=== PATIENT | male | born 1940 | race Caucasian/White ===

== ENCOUNTER 2017-11-18 12:18 | Outpatient (CLI) | payer MEDICARE, SELFPAY ==
[2017-11-18 13:08] LABS: Hemoglobin A1C 6.4 % (4.5-6.2)
[2017-11-18 13:25] LABS: Albumin 3.9 g/dL (3.4-5.0); CREATININE 1.43 mg/dL (0.70-1.30); Estimated GFR 48.21 (mL/min/1.73m2); Potassium 4.7 mmol/L (3.5-5.1)
== END 2017-11-18 12:38 ==
PROVIDERS: PCP General Practice; Visit Provider General Practice
DX: E11.9 Type 2 diabetes mellitus without complications (principal); I10 Essential (primary) hypertension; R60.9 Edema, unspecified
CPT/HCPCS: 36415; 82040; 82565; 83036; 84132

== ENCOUNTER 2018-03-23 13:56 | Outpatient (CLI) | payer MEDICARE, SELFPAY | END 2018-03-23 14:16 | PROVIDERS: PCP General Practice; Visit Provider General Practice | DX: E11.9 Type 2 diabetes mellitus without complications (principal) | CPT/HCPCS: 36415; 83036 ==

== ENCOUNTER 2018-06-29 14:24 | Outpatient (CLI) | payer MEDICARE, SELFPAY ==
[2018-06-29 14:59] LABS: Hemoglobin A1C 6.8 % (4.5-6.2)
== END 2018-06-29 14:44 ==
PROVIDERS: PCP General Practice; Visit Provider General Practice
DX: E10.9 Type 1 diabetes mellitus without complications (principal)
CPT/HCPCS: 36415; 83036

== ENCOUNTER 2019-01-11 14:16 | Outpatient (CLI) | payer MEDICARE, SELFPAY ==
[2019-01-11 14:45] LABS: Hemoglobin A1C 6.9 % (4.5-6.2)
[2019-01-11 15:29] LABS: CREATININE 1.49 mg/dL (0.70-1.30); Estimated GFR 45.85 (mL/min/1.73m2)
[2019-01-12 10:22] LABS: Prolactin 4.8 ng/ml (2.1-17.7)
[2019-01-14 10:48] LABS: Potassium 5.1 mmol/L (3.5-5.1)
== END 2019-01-11 14:36 ==
PROVIDERS: PCP General Practice; Visit Provider General Practice
DX: I10 Essential (primary) hypertension (principal); E11.9 Type 2 diabetes mellitus without complications
CPT/HCPCS: 36415; 82565; 83036; 84132; 84146

== ENCOUNTER 2019-01-29 00:57 | Outpatient (CLI) | payer MEDICARE, SELFPAY ==
--- NOTE | 2019-01-29 09:00 | DI.US_ITS ---
EXAM: US CAROTID CLINICAL HISTORY: F/U 50-60% LT ICA STENOSIS, I65.22 TECHNIQUE: Ultrasound performed using standard protocol. COMPARISON: Cardiac from 10/06/2017 FINDINGS: On the right, there is moderate calcific plaque in the carotid bulb and proximal external carotid art brandi. No hemodynamically significant velocity elevations are present on the right. The right vertebr al artery is antegrade. On the left, there is moderately severe calcific plaque in the left carotid bulb and proximal interna l carotid artery. Elevated velocities on the left are consistent with a 50-69 percent left internal carotid artery stenosis. The left vertebral artery is antegrade. IMPRESSION: 50-69 percent left internal carotid artery stenosis. No hemodynamically significant right cervical carotid artery stenosis.
--- NOTE | 2019-01-29 09:55 | DI.US_ITS ---
APPROVED REPORT EXAM: Comprehensive 2D, Doppler, and color-flow Echocardiogram Patient Location: Out-Patient [employer] Machine: Danielle Moreno [facility] ([place]) Indications: Aortic Stenosis Conclusion Left Ventricle : The left ventricle is normal size. The left ventricular ejection fraction is within the normal range. There is normal LV segmental wall motion. LVEF is 50-55%. The left ventricular mendes tolic function is normal. Right Ventricle : The right ventricle is normal size. The right ventricular systolic function is norm al. Atria : The left atrium size is normal. The right atrium size is normal. Aortic Valve : Aortic valve is calcified. Aortic valve is probably trileaflet. Moderate aortic valve sclerosis. Mild to moderate aortic stenosis (mean gradient is 14 mmHg, DOMENICO by VTI is 1.1 cm???). Triv ial Regurgitation is seen. Mitral Valve : There is mitral annular calcification. No evidence of mitral valve stenosis. Mild to m oderate mitral regurgitation. Tricuspid Valve : The tricuspid valve is normal in structure. IVC is normal in size and collapses >50% with inspiration. Estimated RVSP is 26-30 mmHg. To echocardiogram dated 10/06/2017 there is no significant change. Wall motion Left Ventricle The left ventricle is normal size. The left ventricular ejection fraction is within the normal range. There is normal left ventricular wall thickness. There is normal LV segmental wall motion. The left ventricular diastolic function is normal. LVEF is 50-55%. Right Ventricle The right ventricle is normal size. The right ventricular systolic function is normal. Atria The left atrium size is normal. The right atrium size is normal. The interatrial septum is intact wit h no evidence for an atrial septal defect. Aortic Valve Aortic valve is calcified. Aortic valve is probably trileaflet. Moderate aortic valve sclerosis. Mild to moderate aortic stenosis. Trivial Regurgitation is seen. Mitral Valve There is mitral annular calcification. No evidence of mitral valve stenosis. Mild to moderate mitral regurgitation. Tricuspid Valve The tricuspid valve is normal in structure. There is no tricuspid valve stenosis. Trace tricuspid reg urgitation. Pulmonic Valve The pulmonary valve is normal in structure. There is no pulmonic valvular stenosis. Trace pulmonic re gurgitation. Great Vessels The aortic root is normal in size. The ascending aorta is normal in size. IVC is normal in size and c ollapses >50% with inspiration. Estimated RVSP is 26-30 mmHg. Pericardium No pericardial effusion. 2D Dimensions IVSd 0.85 cm M: 0.6-1.2 LV EDV A2C 89.11 mL PWd 0.90 cm M: 0.6 - 1.2 LV EDV A4C 88.83 mL LVDd 4.95 cm M: 4.2 - 5.8 LA Volume Index A2C 29.44 mL/m2 LVDs 3.80 cm M: 2.5 - 4.0 LA Volume Index A4C 20.66 mL/m2 Aortic Root 3.00 cm M: 3.1 - 3.7 LA Volume Index Biplane 24.86 mL/m2 Left Atrium 3.65 cm M: 3.0 - 4.0 LA Area A4C 14.91 cm2 RA Area A4C 15.09 cm2 LA Area A2C 17.94 cm2 LVOT 1.80 cm (M/F) 1.5-2.5 EF AP4 52.99 % Ascending Aorta 3.18 cm M: 2.6 - 3.4 EF AP2 55.24 % LVEF (Teich) 45.77 % EF BP 54.43 % LVEF (Torres's) 54.43 % M: 52 - 72 LV Volume 68.47 mL M: 62 - 150 LV Volume Index 34.40 mL/m2 M: 34 - 74 FS 22.85 % LV Diastology E Decel Time 222.00 (160-240 msec) E/A Ratio 1.2 MED E' 0.11 (>0.07 m/s) LV E/e MED 10.65 (<14) LAT E' 0.10 (>0.1 m/s) LV E/e LAT 11.35 (<14) Aortic Valve LVOT Area 2.58 cm2 LVOT Peak Nakul. 1.10 m/s LVOT Mean Nakul. 0.76 m/s DOMENICO Vmax 2.42 m/s LVOT Peak Gr. 5.05 mmHg DOMENICO Vmax Index 0.60 cm2/m2 LVOT Mean Gr. 2.65 mmHg DOMENICO Mean Nakul. 1.80 m/s LVOT VTI 0.25 m DOMENICO Mean Nakul. Index 0.55 cm2/m2 AoV Peak Nakul. 2.42 (0.5-1.3 m/s) AoV Mean Nakul. 1.80 m/s AO Peak GR. 23.41 mmHg AO Mean GR. 14.19 (<5 mmHg) AO VTI 0.60 (0.18-0.25 m) DOMENICO (VTI) 1.10 (2.5-4.5 cm2) DOMENICO (VTI) Index 0.55 cm/m2 Mitral Valve MV E Max Nakul. 1.12 (0.4-1.3 m/s) MV A Velocity 0.95 (0.4-1.3 m/s) E/A Ratio 1.13 MV Decel. Time 221.65 (160-240 msec) MV PHT 64.29 msec MVA PHT 3.40 cm2 Pulmonary Valve PV Peak Velocity 0.95 (0.5-1.5 m/s) Tricuspid Valve TR P. Velocity 2.57 m/s TV Regurg Vmax 2.57 m/s RAP Estimate 3.00 mmHg RVSP 29.50 mmHg TR P. Gradient 26.45 mmHg
== END 2019-01-29 01:17 ==
PROVIDERS: PCP General Practice; Visit Provider General Practice
DX: I35.0 Nonrheumatic aortic (valve) stenosis (principal); I34.0 Nonrheumatic mitral (valve) insufficiency; R01.1 Cardiac murmur, unspecified; I10 Essential (primary) hypertension; I65.22 Occlusion and stenosis of left carotid artery
CPT/HCPCS: 93306; 93880

== ENCOUNTER 2019-04-06 09:20 | Outpatient (CLI) | payer MEDICARE, SELFPAY | END 2019-04-06 09:40 | PROVIDERS: PCP General Practice; Visit Provider Internal Medicine Cardiovascular Disease | DX: I35.0 Nonrheumatic aortic (valve) stenosis (principal); R07.89 Other chest pain; I10 Essential (primary) hypertension; E78.5 Hyperlipidemia, unspecified | CPT/HCPCS: 99204; 99215; 93005; 93010 ==

== ENCOUNTER → 2019-07-05 14:47 | Outpatient (BNVA) | payer MEDICARE, SELFPAY | PROVIDERS: PCP Internal Medicine Geriatric Medicine; Referring Provider Internal Medicine Geriatric Medicine; Visit Provider Internal Medicine Cardiovascular Disease | DX: R07.89 Other chest pain (principal); I10 Essential (primary) hypertension; I35.0 Nonrheumatic aortic (valve) stenosis; E78.5 Hyperlipidemia, unspecified; I65.22 Occlusion and stenosis of left carotid artery | CPT/HCPCS: 99214; 99443 ==

== ENCOUNTER → 2019-12-31 09:46 | Outpatient (BNVA) | payer MEDICARE, SELFPAY | PROVIDERS: PCP Internal Medicine Geriatric Medicine; Referring Provider Internal Medicine Geriatric Medicine; Visit Provider Internal Medicine Cardiovascular Disease | DX: I35.0 Nonrheumatic aortic (valve) stenosis (principal); I65.22 Occlusion and stenosis of left carotid artery; I12.9 Hypertensive chronic kidney disease with stage 1 through stage 4 chronic kidney disease, or unspecified chronic kidney disease; N18.9 Chronic kidney disease, unspecified; R07.9 Chest pain, unspecified; E78.5 Hyperlipidemia, unspecified; E11.22 Type 2 diabetes mellitus with diabetic chronic kidney disease | CPT/HCPCS: 99214 ==

== ENCOUNTER → 2020-06-22 13:37 | Outpatient (BNVA) | payer MEDICARE, SELFPAY | PROVIDERS: PCP Internal Medicine Geriatric Medicine; Referring Provider Internal Medicine Geriatric Medicine; Visit Provider Internal Medicine Cardiovascular Disease | DX: I10 Essential (primary) hypertension (principal); I35.0 Nonrheumatic aortic (valve) stenosis; Z79.82 Long term (current) use of aspirin; E78.5 Hyperlipidemia, unspecified | CPT/HCPCS: 99214 ==

== ENCOUNTER 2024-10-29 22:40 | Inpatient (IN) | payer MEDICARE, SELFPAY ==
[2024-10-29] VITALS (7 sets, daily range): BP systolic 163–181; BP diastolic 71–77; PULSE 80–97; RESP 18; TEMP 37.6–37.7; O2SAT 94–98
--- NOTE | 2024-10-29 22:51 | W.ED.GENAD ---
Discharge Plan Disposition Patient Disposition: Admit to [facility] Condition: Stable Discharge Details Clinical Impression: Small bowel obstruction Admit Date/Time: 10/30/24 00:32 Admit Provider: Sarwat Kitchen Attending Provider: Sarwat Kitchen Primary Care Provider: Angeles Chopra ED Provider: Bal Rousseau Discharge Data Discharge Date/Time-TO BE ENTERED AT DEPARTURE: 10/30/24 01:45 HPI General Date/Time Provider Initiated Documentation: 10/29/24 22:41. HPI Narrative: This is an 83-year-old male with a past medical history of hypertension, high cholesterol, diabetes mellitus on insulin, aortic stenosis, severe dementia, who presents today for abdominal distention. was at bedside states that the last 2 to 3 days he has been complaining of intermittent abdominal achiness, he has been eating very little compared to normal, with only half and quarter meals here and there. He had 1 episode of vomiting 2 days ago but none since then. is uncertain as to when he had his last bowel movement. No prior abdominal surgeries. No other complaints at this time. Related Data Home Medications ?Medication ?Instructions ?Recorded ?Confirmed dorzolamide 22.3 mg-timolol 6.8 1 drp OU BID 11/22/13 10/29/24 mg/mL eye drops pioglitazone 45 mg tablet (Actos) 45 mg PO DAILY AM 11/22/13 10/29/24 pravastatin 40 mg tablet 40 mg PO DAILY 11/22/13 10/29/24 losartan 100 mg tablet 100 mg PO DAILY 08/04/17 10/29/24 aspirin 81 mg tablet,delayed 81 mg PO DAILY 04/06/19 10/29/24 release amlodipine 10 mg tablet 10 mg PO DAILY #90 tabs 12/31/19 10/29/24 levothyroxine 25 mcg tablet 25 mcg PO DAILY 12/31/19 10/29/24 carvedilol 6.25 mg tablet 6.25 mg PO BID #180 tabs 08/04/20 10/29/24 insulin glargine 100 unit/mL (3 15 unit subcut DAILY 10/29/24 10/29/24 mL) subcutaneous pen (Lantus Solostar U-100 Insulin) Previous Rx's ?Medication ?Instructions ?Recorded amlodipine 10 mg tablet 10 mg PO DAILY #90 tabs 12/31/19 carvedilol 6.25 mg tablet 6.25 mg PO BID #180 tabs 08/04/20 Allergies Allergy/AdvReac Type Severity Reaction Status Date / Time No Known Allergies Allergy Unverified 04/04/22 14:23 General Stated Complaint: Abd Prob ANNALEE: 3 Exam Narrative Exam Narrative: 1.Const: Well-nourished, Well-developed, appearing stated age 2.Eyes: PERRL, no conjunctival injection, and symmetrical lids. 3.ENT: Atraumatic external nose and ears. Moist MM. Neck: Symmetric, trachea midline, No thyromegaly. 4.CVS: +S1/S2, Peripheral pulses 2+ and equal in all extremities. Brisk capillary refill in all extremities. 5.RESP: Unlabored respiratory effort. Clear to auscultation bilaterally. No wheezes rales or rhonchi 6.GI: Notably distended and somewhat tense. Absent bowel sounds. No focal tenderness though. 7.MSK: Normocephalic/Atraumatic, Extremities w/o deformity or ttp No cyanosis or clubbing, Normal movement of all extremities 8.Skin: Warm, Dry. No rashes or lesions. 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 Sensation grossly intact, no focal neurologic deficits. 10.Psych: (AAO) x3. Appropriate mood and affect Course Vital Signs Vital signs: Vital Signs Temperature 37.7 C H 10/29/24 22:36 Pulse 84 10/29/24 22:36 Respiratory Rate 18 10/29/24 22:36 Blood Pressure 175/75 H 10/29/24 22:36 Pulse Oximetry 98 10/29/24 22:36 Temperature 37.7 C H 10/29/24 22:36 Temperature Source Oral 10/29/24 22:36 Pulse 84 10/29/24 22:36 Respiratory Rate 18 10/29/24 22:36 Blood Pressure 175/75 H 10/29/24 22:36 Blood Pressure Position Sitting 10/29/24 22:36 Pulse Oximetry 98 10/29/24 22:36 Oxygen Delivery Method Room Air 10/29/24 22:36 Oxygen Flow Rate 0 10/29/24 22:36 Pain Level 0 10/29/24 22:36 Medical Decision Making This is an 83-year-old male with a past medical history of hypertension, high cholesterol, diabetes mellitus on insulin, aortic stenosis, severe dementia, who presents today for abdominal distention. was at bedside states that the last 2 to 3 days he has been complaining of intermittent abdominal achiness, he has been eating very little compared to normal, with only half and quarter meals here and there. He had 1 episode of vomiting 2 days ago but none since then. is uncertain as to when he had his last bowel movement. No prior abdominal surgeries. No other complaints at this time. Exam demonstrates notably distended abdomen, absent bowel sounds, but no significant focal tenderness. Differential is high for [place] syndrome, small bowel obstruction, less likely volvulus. Toxic megacolon is on the differential as well but less likely. We will get CT imaging, gently rehydrate, evaluate for an ischemic component, monitor closely and reassess. [address] scan shows evidence of multiple fluid-filled loops, high-grade small bowel obstruction, laboratory workup shows normal lactate, no evidence to suggest ischemia. Notably elevated BUN and creatinine compared to normal. Patient has been started on IV fluids. NG tube has been placed for the patient. Review of patient's medical history reveals that he is a DNR/DNI. Discussed the case with Dr. Rae of Surgery, who agree with NG tube will consult inpatient as needed. Discussed the case with the hospitalist Dr. Garcia, she agrees with the assessment plan. I have extensively reviewed the treatment plan with the patient. I have addressed all patient concerns at this time. I have also discussed the plan with the admitting physician and they agree with the current assessment and plan and have agreed to assume responsibility for the patient. All parties demonstrate verbal understanding and agreement with our assessment and plan at this time. The documentation in this chart was dictated using [employer] dictation software. Please excuse any dictation errors. Adrenal glands: The adrenal glands are unremarkable. Kidneys and ureters: Bilateral renal cysts are present, as well as other subcentimeter hypodensities which are too small to characterize. Stomach and bowel: Distended stomach with fluid-filled dilated loops of small bowel measuring up to 5 cm the transition point is in the right lower quadrant, characteristic of high-grade partial small bowel obstruction. Appendix: No evidence of appendicitis. Intraperitoneal space: Unremarkable. No free air. No significant fluid collection. Vasculature: There is moderate diffuse atherosclerotic disease of the abdominal aorta. Lymph nodes: Unremarkable. No enlarged lymph nodes. Urinary bladder: No focal wall thickening of the urinary bladder. Reproductive: Unremarkable as visualized. Bones/joints: No acute osseous abnormality. Soft tissues: Bilateral fat containing inguinal hernias. Soft tissues are unremarkable as visualized. IMPRESSION: Distended stomach with fluid-filled dilated loops of small bowel measuring up to 5 cm the transition point is in the right lower quadrant, characteristic of high-grade partial small bowel obstruction. Thank you for allowing us to participate in the care of your patient. Dictated and Authenticated by: Yris Valladares MD 10/30/2024 12:13 AM Eastern Time ([place] & [place] [facility]SH All Active Problems (Updated 10/30/24 @ 02:35 by Bal Rousseau DO) Small bowel obstruction (Acute) Neuropathy (Acute) Nail dystrophy (Acute) Chest tightness (Acute) HTN (hypertension) (Chronic) Aortic stenosis (Chronic) Medical History (Updated 10/30/24 @ 02:35 by Bal Rousseau DO) Stenosis of left internal carotid artery Retinal detachment Glaucoma HLD (hyperlipidemia) Diabetes mellitus Social History Smoking/Tobacco Use Status: Never Smoking risk assessment performed?: Yes Alcohol Intake: current Alcohol Intake frequency: 0-2 drinks per day Alcohol type: wine Details: pt drinks approx 1-3 glasses of wine a day. Drug use: Never What type of physical activity do you participate in: walking Duration: 45-60 minutes/day Frequency: daily Do you feel safe in your relationship?: Yes
[2024-10-29] MEDS: Lactated Ringers 1,000 ML 1000 ML IV (23:08)
[2024-10-29] MEDS: Ondansetron 4 MG/2 ML VIAL IVP (23:17)
[2024-10-29 23:25] LABS: MCV 86 fL (80-95); RDW 14.6 % (11.8-14.1)
[2024-10-29 23:28] LABS: Abs Immature Grans 0.02 10^3/uL (0.0-0.06); HCT 34.0 % (40.0-50.0); HGB 11.3 g/dL (13.5-17.5); Immature Grans % 0.6 %; MCH 28.6 pg (27.0-33.0); MCHC 33.2 % (32.0-36.0); MPV 10.9 fL (8.0-11.0); Platelet Count 175 10^3/uL (130-400); RBC 3.95 10^6/uL (4.36-5.78); RDW-SD 45.9 fL; WBC 3.62 10^3/uL (4.4-10.8)
[2024-10-29 23:38] LABS: Lipase 67 U/L (<78)
--- NOTE | 2024-10-29 23:42 | DI.CT_ITS ---
Exam(s) CT ABDOMEN PELVIS W EXAM: CT ABDOMEN PELVIS W CLINICAL HISTORY: Severe dementia, abd distention, suspect [place]'s. TECHNIQUE: Imaging Protocol: Axial computed tomography images with coronal and sagittal reformatted images were created and reviewed CONTRAST MATERIAL: Intravenous: Omnipaque 350 Contrast volume:75 ml Oral: no COMPARISON: CT ABD PELVIS WITH CONTRAST from 07/20/2015 FINDINGS: ABDOMEN and PELVIS: Lung Bases: Trace pericardial effusion. Trace right pleural effusion Liver: Normal density. No suspicious mass. Gallbladder and biliary tract: Cholelithiasis. No wall thickening or pericholecystic fluid. No biliary dilation. Pancreas: Normal density. No abnormal calcifications or inflammatory process. No evidence of mass. Spleen: Normal. Kidneys: Normal size, contour and axis. No radiodense stones. No obstructive uropathy. Bilateral simple cysts. No suspicious masses seen. Adrenal glands: No masses seen. Vasculature: Abdominal aorta non-dilated. Heavily calcified. Soft tissues: Unremarkable. Bladder: No gross wall thickening. No calculi.No focal mass. Bowel: The stomach and small bowel are markedly dilated, measuring up to 5 cm in diameter. The there is a transition point in the right lower quadrant and distal loops of ileum as well as colon are decompressed. Findings are consistent with small bowel obstruction. No wall thickening or pneumatosis. There is fluid in the distal esophagus consistent with reflux. The appendix is normal. Peritoneal cavity: Trace ascites. No focal collection. No mesenteric inflammatory response. No free air. Bones: Unremarkable for age. Reproductive organs: Unremarkable. Lymph nodes: No pathologically enlarged lymph nodes. IMPRESSION:: Severely dilated stomach and small bowel down to the level of the right lower quadrant where there is a transition point, consistent with small bowel obstruction. Trace ascites. No free air. The preliminary [facility] report was reviewed. RADIATION DOSE DELIVERED: Total DLP DATA REPOSITORY: All CT scans at this facility are submitted to the National Radiology Data Registry (NRDR) Dose Index Registry (DIR) with the [employer] (ACR). RADIATION OPTIMIZATION: All CT scans at this facility use at least one of these dose optimization techniques: automated exposure control; mA and/or kV adjustment per patient size (includes targeted exams where dose is matched to clinical indication); or iterative reconstruction.
[2024-10-29 23:44] LABS: ALT 20 U/L (16-63); AST 14 U/L (15-37); Albumin 3.9 g/dL (3.4-5.0); Alkaline Phosphatase 62 U/L (46-116); Anion Gap 12.2 mmol/L (3-11); BUN 54 mg/dL (7-18); Bilirubin, Total 1.0 mg/dL (0.2-1.0); CO2 27.8 mmol/L (21.0-32.0); Calcium 9.8 mg/dL (8.5-10.1); Chloride 97 mmol/L (98-107); Estimated GFR 19.45 (mL/min/1.73m2); Glucose 325 mg/dL (74-106); Potassium 4.1 mmol/L (3.5-5.1); Sodium 137 mmol/L (136-145); Total Protein 7.7 g/dL (6.4-8.2)
[2024-10-29] MEDS: Omnipaque 350 MG/ML 100 ML BTL IJ (23:45)
[2024-10-29] MEDS: Normal Saline - Diluent 50 ML VIAL IJ (23:46)
[2024-10-30] VITALS (81 sets, daily range): BP systolic 53–145; BP diastolic 22–99; PULSE 83–156; RESP 16–47; TEMP 37–38.9; O2SAT 92–100
[2024-10-30 00:02] LABS: Procalcitonin 0.38 ng/mL
--- NOTE | 2024-10-30 00:14 | DI.[facility]_ITS ---
Addendum created by Yris Valladares MD on 10/30/2024 1:03:38 AM EDT: THIS REPORT CONTAINS FINDINGS THAT MAY BE CRITICAL TO PATIENT CARE. The findings were verbally communicated via telephone conference with CHUCKY LUONG at 1:03 AM EDT on 10/30/2024. The findings were acknowledged and understood. Initial report created on 10/30/2024 12:13:30 AM EDT: PROCEDURE INFORMATION: Exam: CT Abdomen And Pelvis With Contrast Exam date and time: 10/29/2024 11:06 PM Age: 83 years old Clinical indication: Other: Severe dementia, abd distention, suspect jj's TECHNIQUE: Imaging protocol: Computed tomography of the abdomen and pelvis with contrast. Radiation optimization: All CT scans at this facility use at least one of these dose optimization techniques: automated exposure control; mA and/or kV adjustment per patient size (includes targeted exams where dose is matched to clinical indication); or iterative reconstruction. Contrast material: [id number]; Contrast volume: 75 ml; Contrast route: INTRAVENOUS (IV); COMPARISON: No relevant prior studies available. FINDINGS: Lungs: Linear bibasilar opacities most consistent with subsegmental atelectasis. Liver: There is a diffuse decrease in hepatic parenchymal density, consistent with fatty infiltration. Gallbladder and biliary ducts: Multiple gallstones are present. No pericholecystic inflammatory changes to suggest cholecystitis. Pancreas: The pancreas is unremarkable. Spleen: No splenomegaly. No lesions. Adrenal glands: The adrenal glands are unremarkable. Kidneys and ureters: Bilateral renal cysts are present, as well as other subcentimeter hypodensities which are too small to characterize. Stomach and bowel: Distended stomach with fluid-filled dilated loops of small bowel measuring up to 5 cm the transition point is in the right lower quadrant, characteristic of high-grade partial small bowel obstruction. Appendix: No evidence of appendicitis. Intraperitoneal space: Unremarkable. No free air. No significant fluid collection. Vasculature: There is moderate diffuse atherosclerotic disease of the abdominal aorta. Lymph nodes: Unremarkable. No enlarged lymph nodes. Urinary bladder: No focal wall thickening of the urinary bladder. Reproductive: Unremarkable as visualized. Bones/joints: No acute osseous abnormality. Soft tissues: Bilateral fat containing inguinal hernias. Soft tissues are unremarkable as visualized. IMPRESSION: Distended stomach with fluid-filled dilated loops of small bowel measuring up to 5 cm the transition point is in the right lower quadrant, characteristic of high-grade partial small bowel obstruction. Dictated and Authenticated by: Yris Valladares MD. Orderin Soham Selby MD
--- NOTE | 2024-10-30 00:39 | W.PM.HP.N ---
Date of service: 10/29/24 Time of Service: 23:30 Assessment and Plan Assessment and plan (1) Small bowel obstruction: Status: Acute Assessment and plan: NGT placed and confirmed on CXR after mild sedation with olanzapine and benzo Profuse dark liquid removed Contributing factors likely include poor DM control, dehydration Appreciate general surgery guidance Continue NPO (2) PATRICIA (acute kidney injury): Status: Acute Assessment and plan: Likely PATRICIA vs chronic with creatinine 3.1, BUN elevated 54 Likely dehydration, note recent temps above 90 He was given LR 1L bolus in ED and is now on LR @ 125 CK within normal limits in ED, will repeat in the morning He struggled with agitation prior to medications, anticipate CK elevation but not rhabdo Monitor renal function in morning labs (3) Chronic dementia with behavioral disturbance: Status: Acute Assessment and plan: Per report, patient's provides adequate care Concern for uncontrolled diabetes, possible held insulin due to poor PO intake Agitation secondary to illness, pain, medical interventions, likely out of character Olanzapine 10 given for agitation, followed by lorazepam 4mg. Soft restraints placed Care level ICU Will appreciate care management assessment of home safety (4) Diabetes mellitus with hyperglycemia, with long-term current use of insulin: Status: Acute Assessment and plan: Last known A1C 8.0 in 2021, repeating with morning labs Home regimen includes basal 15u daily, pioglitazone Hold pioglitazone Giving 10u long acting insulin now, likely TDD 15u. Medium correctional, no scheduled basal pending med rec (5) Benign essential hypertension: Status: Acute Assessment and plan: Holding home medications for NPO Home regimen includes amlodipine, carvedilol, losartan, need confirmation (6) Hypothyroidism: Status: Chronic Assessment and plan: Holding home levothyroxine History of Present Illness History of Present Illness Chief Complaint: abdominal distension Narrative: Carlos Figueroa is an 83 year old man with dementia, presenting October 29, brought in by his for a newly distended abdomen and complaints of stomach ache over the last few days. Food intake has been poor. One episode of vomiting. No recent illness, no sick contacts. Patient is unable to answer questions; he denies pain. PMH includes dementia, DM on insulin, HTH, hypothyroid In the ED, BP was elevated 175/75, vitals otherwise unremarkable. CXR unremarkable. CT abdomen/pelvis with contrast showed likely SBO with dilation up to 5 cm, transition point in RLQ. Labs with mild normocytic anemia, hemoglobin 11.3. Possible PATRICIA vs CKD, creatinine 3.1 against last known baseline 1.5 in 2019. Blood glucose 325 with last known A1C 8.0 in 2021. General surgery consulted, recommending medical management. NGT placement attempted but patient was too agitated. Given olanzapine prior to move to ICU. PFSH All Active Problems (Updated 10/30/24 @ 04:18 by Sarwat Kitchen MD) PATRICIA (acute kidney injury) (Acute) Hypothyroidism (Chronic) Benign essential hypertension (Acute) Diabetes mellitus with hyperglycemia, with long-term current use of insulin (Acute) Chronic dementia with behavioral disturbance (Acute) Small bowel obstruction (Acute) Neuropathy (Acute) Nail dystrophy (Acute) Chest tightness (Acute) HTN (hypertension) (Chronic) Aortic stenosis (Chronic) Medical History (Updated 10/30/24 @ 04:18 by Sarwat Kitchen MD) Stenosis of left internal carotid artery Retinal detachment Glaucoma HLD (hyperlipidemia) Diabetes mellitus Social History Smoking/Tobacco Use Status: Never Smoking risk assessment performed?: Yes Alcohol Intake: current Alcohol Intake frequency: 0-2 drinks per day Alcohol type: wine Details: pt drinks approx 1-3 glasses of wine a day. Drug use: Never What type of physical activity do you participate in: walking Duration: 45-60 minutes/day Frequency: daily Do you feel safe in your relationship?: Yes Meds Allergies and Home Medications Allergies Allergy/AdvReac Type Severity Reaction Status Date / Time No Known Allergies Allergy Unverified 04/04/22 14:23 Home Medications ?Medication ?Instructions ?Recorded ?Confirmed ?Type dorzolamide 22.3 mg-timolol 6.8 1 drp OU BID 11/22/13 10/29/24 History mg/mL eye drops pioglitazone 45 mg tablet (Actos) 45 mg PO DAILY AM 11/22/13 10/29/24 History pravastatin 40 mg tablet 40 mg PO DAILY 11/22/13 10/29/24 History losartan 100 mg tablet 100 mg PO DAILY 08/04/17 10/29/24 History aspirin 81 mg tablet,delayed 81 mg PO DAILY 04/06/19 10/29/24 History release amlodipine 10 mg tablet 10 mg PO DAILY #90 tabs 12/31/19 10/29/24 Rx levothyroxine 25 mcg tablet 25 mcg PO DAILY 12/31/19 10/29/24 History carvedilol 6.25 mg tablet 6.25 mg PO BID #180 tabs 08/04/20 10/29/24 Rx insulin glargine 100 unit/mL (3 15 unit subcut DAILY 10/29/24 10/29/24 History mL) subcutaneous pen (Lantus Solostar U-100 Insulin) Exam Narrative Exam Narrative: General: This is a confused, elderly man in no apparent distress HEENT: Normocephalic, atraumatic CV: RRR Resp: CTAB Abd: distended, fairly firm, no apparent tenderness, absent bowel sounds MSK: voluntary motion x4 Neuro: awake, alert, confused, combative Results Labs 10/29/24 23:15 10/29/24 23:15 Labs: Laboratory Results - last 24 hr 10/29/24 23:15 WBC 3.62 L RBC 3.95 L Hgb 11.3 L Hct 34.0 L MCV 86 MCH 28.6 MCHC 33.2 RDW 14.6 H Plt Count 175 MPV 10.9 Immature Gran % 0.6 Neutrophils % 62.9 Lymphocytes % 18.0 Monocytes % 18.2 Eosinophils % 0.0 Basophils % 0.3 Nucleated RBC % 0.0 Absolute Neutrophils 2.28 Absolute Lymphocytes 0.65 L Absolute Monocytes 0.66 Absolute Eosinophils 0.00 Absolute Basophils 0.01 VBG Lactate 1.9 Sodium 137 Potassium 4.1 Chloride 97 L Carbon Dioxide 27.8 Anion Gap 12.2 H BUN 54 H Creatinine 3.1 H Est GFR (CKD-EPI 2020) 19.45 Glucose 325 H Calcium 9.8 Total Bilirubin 1.0 AST 14 L ALT 20 Alkaline Phosphatase 62 Total Protein 7.7 Albumin 3.9 Lipase 67 Procalcitonin 0.38 Last Vital Signs Temp 37.6 C H 10/29/24 23:26 Pulse 88 10/29/24 23:26 Resp 18 10/29/24 23:26 BP 181/71 H 10/29/24 23:26 Pulse Ox 98 10/29/24 23:26 Time Spent Time spent with Patient: 55-74 minutes Time was spent: preparing to see the patient(eg.review tests), obtaining and/or reviewing separately otained hiistory, ordering medications,tests, procedures, referring, communicating with other health pet care worker, indepentently interpreting results, counseling the patient and care coordination
--- NOTE | 2024-10-30 01:03 | DI.RAD_ITS ---
Exam(s) XR PORTABLE CHEST AP EXAM: XR PORTABLE CHEST AP CLINICAL HISTORY: Post NG tube TECHNIQUE: 2D digital imaging was performed. COMPARISON: No exams were available for comparison FINDINGS: Nasogastric tube has been placed which is faintly visualized, projecting below the level of the diaphragm. LUNGS: Suboptimally inflated but clear. Abdominal soft tissues overlie the lung bases. No pleural abnormality seen. HEART: Normal size. AORTA: Normal diameter. BONES: Unremarkable for age. Soft tissues: Dilated loops of small bowel noted in the upper abdomen. IMPRESSION: No acute findings. Satisfactory placement of nasogastric tube. The preliminary [facility] report was reviewed. DATA REPOSITORY: RADIATION DOSE DELIVERED:
--- NOTE | 2024-10-30 01:09 | DI.[facility]_ITS ---
PROCEDURE INFORMATION: Exam: XR Chest Exam date and time: 10/30/2024 12:58 AM Age: 83 years old Clinical indication: Device placement; Post ng tube TECHNIQUE: Imaging protocol: Radiologic exam of the chest. Views: 1 view. COMPARISON: CT ABDOMEN PELVIS W 10/29/2024 11:06 PM FINDINGS: Tubes, catheters and devices: A gastric feeding tube is present within the stomach. Lungs: Unremarkable. No consolidation. Pleural spaces: Unremarkable. No pleural effusion. No pneumothorax. Heart/Mediastinum: Unremarkable. No cardiomegaly. Bones/joints: Unremarkable. IMPRESSION: No acute findings. Dictated and Authenticated by: Yris Valladares MD. Orderin Soham Selby MD
[2024-10-30] MEDS: OLANZapine 10 MG VIAL IM (01:21)
--- NOTE | 2024-10-30 01:22 | NUR.NOTE ---
Pt removed NG tube and IV. Did not replace down in ED. NG and IV agreed upon to be replaced in ICU where 1:1 care can be provided for pt safety.
[2024-10-30] MEDS: Lidocaine/Epinephri/Tetracaine Topical Gel 3 ML TP (02:00)
[2024-10-30] MEDS: LORazepam 20 MG/10 ML VIAL 4 MG IVP (02:11)
--- NOTE | 2024-10-30 02:15 | DI.RAD_ITS ---
Exam(s) XR PORTABLE CHEST AP POST LINE EXAM: XR PORTABLE CHEST AP POST LINE CLINICAL HISTORY: NG placement verification TECHNIQUE: 2D digital imaging was performed. COMPARISON: CR,XR XR PORTABLE CHEST AP from 10/30/2024 FINDINGS: The nasogastric tube projects in the proximal stomach. The side hole is near the GE junction. The tube should be advanced. LUNGS: Clear. No pleural abnormality seen. HEART: Normal size. AORTA: Normal diameter. BONES: Unremarkable for age. Soft tissues: Dilated stomach and small bowel visible. IMPRESSION: The nasogastric tube should be advanced further into the stomach. The preliminary [facility] report was reviewed. DATA REPOSITORY: RADIATION DOSE DELIVERED:
--- NOTE | 2024-10-30 03:03 | DI.[facility]_ITS ---
PROCEDURE INFORMATION: Exam: XR Chest Exam date and time: 10/30/2024 2:53 AM Age: 83 years old Clinical indication: Device placement; Ng tube; Ng placement verification TECHNIQUE: Imaging protocol: Radiologic exam of the chest. Views: 1 view. COMPARISON: CR XR PORTABLE CHEST AP 10/30/2024 12:58 AM FINDINGS: Tubes, catheters and devices: A gastric feeding tube is present within the proximal stomach . The side port appears to be at the GE junction, recommend advancement approximately 5 cm. Lungs: Unremarkable. No consolidation. Pleural spaces: Unremarkable. No pleural effusion. No pneumothorax. Heart/Mediastinum: Unremarkable. No cardiomegaly. Bones/joints: Unremarkable. IMPRESSION: A gastric feeding tube is present within the proximal stomach . The side port appears to be at the GE junction, recommend advancement approximately 5 cm. Dictated and Authenticated by: Yris Valladares MD. Orderin Imtiaz Fam MD
[2024-10-30] MEDS: Insulin Glargine 300 UNITS/3 ML PEN 10 UNITS SC (03:09)
[2024-10-30] MEDS: Lactated Ringers 1,000 ML 125 ML IV ×2 (04:11→10:26)
[2024-10-30] MEDS: Normal Saline Flush 10 ML SYR IVP ×2 (04:15→09:53)
[2024-10-30] MEDS: Insulin Aspart 300 UNITS/3 ML PEN 10 UNITS SC (04:51)
--- NOTE | 2024-10-30 06:30 | RT.EKG_ITS ---
APPROVED REPORT Exam: Resting ECG Reason for Exam: initial exam Patient Location: I HR:111 bpm ECG Measurements Heart Rate 111 AXIS MN 144 P 47 QRSd 89 QRS 35 QT 332 T 72 QTc 451 Conclusion Sinus tachycardia...rate> 99 Probable left atrial enlargement...P >50mS, <-0.10mV V1 Otherwise normal ECG
[2024-10-30] MEDS: ACETAMINOPHEN 1,000 MG/100 ML BAG 400 MG IVPB (06:58)
[2024-10-30 07:10] LABS: HCT 37.6 % (40.0-50.0); HGB 12.7 g/dL (13.5-17.5); MCH 28.7 pg (27.0-33.0); MCHC 33.8 % (32.0-36.0); MCV 85 fL (80-95); MPV 11.6 fL (8.0-11.0); Platelet Count 206 10^3/uL (130-400); RBC 4.42 10^6/uL (4.36-5.78); RDW 14.2 % (11.8-14.1); RDW-SD 44.2 fL; WBC 4.22 10^3/uL (4.4-10.8)
[2024-10-30 07:31] LABS: RBC Morphology Normal
[2024-10-30 07:32] LABS: ALT 20 U/L (16-63); AST 16 U/L (15-37); Albumin 3.7 g/dL (3.4-5.0); Alkaline Phosphatase 58 U/L (46-116); Anion Gap 11.4 mmol/L (3-11); BUN 62 mg/dL (7-18); Bilirubin, Total 0.9 mg/dL (0.2-1.0); CO2 32.6 mmol/L (21.0-32.0); Calcium 9.5 mg/dL (8.5-10.1); Chloride 94 mmol/L (98-107); Creatine Kinase 202 U/L (39-308); Estimated GFR 14.33 (mL/min/1.73m2); Glucose 347 mg/dL (74-106); Potassium 3.9 mmol/L (3.5-5.1); Sodium 138 mmol/L (136-145); Total Protein 7.4 g/dL (6.4-8.2)
--- NOTE | 2024-10-30 07:32 | W.PC.ACHO ---
Registration Status: ADM IN Primary Language: Preferred Language: Sami ED Information & Data Chief Complaint Abd Prob 10/29/24 23:26 Chief Complaint Abd Prob 10/29/24 22:56 Triage Note BIBA with complaints of abd 10/29/24 22:36 distention x 4 days. Last BM 4 days ago Medical / Surgical History (Last Reviewed 06/22/20 @ 10:16 by Shaji Nina MD) Stenosis of left internal carotid artery Retinal detachment Glaucoma HLD (hyperlipidemia) Diabetes mellitus Most Recent Vital Signs Temperature 37.0 C 10/30/24 05:00 Temperature Source Temporal Artery Scan 10/30/24 05:00 Pulse 115 H 10/30/24 07:01 Pulse 114 H 10/30/24 07:01 Respiratory Rate 31 H 10/30/24 07:01 Respiratory Effort Non-Labored 10/30/24 05:00 Respiratory Depth Normal 10/30/24 03:24 Respiratory Pattern Tachypnea 10/30/24 03:24 Blood Pressure 82/55 L 10/30/24 07:01 Blood Pressure Mean 65 10/30/24 07:01 Blood Pressure Position Supine 10/30/24 03:24 Pulse Oximetry 97 10/30/24 07:13 Oxygen Delivery Method Room Air 10/30/24 07:13 Oxygen Flow Rate 0 10/30/24 07:13 Pain Level 0 10/29/24 23:26 Allergies No Known Allergies Allergy (Unverified 04/04/22 14:23) Precautions Isolation Standard precaution 10/29/24 23:26 Active Medications Generic Name Dose Route Start Last Admin Trade Name Freq PRN Reason Stop Dose Admin Ringer's Solution 1,000 mls @ 125 mls/hr 10/30/24 03:00 10/30/24 04:11 IV 125 mls/hr INFUSION JEROME Administration Acetaminophen 1,000 mg in 100 mls @ 400 mls/hr 10/30/24 06:50 10/30/24 06:58 Ofirmev IVPB 10/31/24 08:00 400 mls/hr Q8H PRN PRN Administration Iohexol 100 ml 10/29/24 23:15 10/29/24 23:45 Omnipaque 350 Mg/Ml 100 Ml Btl IJ 11/28/24 23:59 75 ml DIRECTED JEROME Administration Sodium Chloride 0 ml 10/29/24 22:49 10/30/24 04:15 Normal Saline Flush 10 Ml Syr IVP 40 ml PRN PRN Administration Sodium Chloride 50 ml 10/29/24 23:15 10/29/24 23:46 Normal Saline - Diluent 50 Ml Vial IJ 50 ml DIRECTED JEROME Administration IV IV Catheter Type [Left] Peripheral IV IV Catheter Type [Right Saline Lock Forearm] IV Catheter Type [Left Forearm Saline Lock ] IV Catheter Type [Left Peripheral IV Antecubital] IV Catheter Gauge [Left] 20 IV Catheter Gauge [Right 20 Forearm] IV Catheter Gauge [Left 20 Forearm] IV Catheter Gauge [Left 20 Antecubital] Diet Orders Category Date Time Status Nothing Per Oral [DIET] Nutrition 10/30/24 00:33 Active Diagnostics 10/30/24 10/30/24 10/29/24 Range/Units 05:35 05:30 23:15 WBC Pending 3.62 L (4.4-10.8) 10^3/uL RBC Pending 3.95 L (4.36-5.78) 10^6/uL Hgb Pending 11.3 L (13.5-17.5) g/dL Hct Pending 34.0 L (40.0-50.0) % MCV Pending 86 (80-95) fL MCH Pending 28.6 (27.0-33.0) pg MCHC Pending 33.2 (32.0-36.0) % RDW Pending 14.6 H (11.8-14.1) % Plt Count Pending 175 (130-400) 10^3/uL MPV Pending 10.9 (8.0-11.0) fL Immature Gran % Pending 0.6 % Neutrophils % Pending 62.9 % Lymphocytes % Pending 18.0 % Monocytes % Pending 18.2 % Eosinophils % Pending 0.0 % Basophils % Pending 0.3 % Nucleated RBC % 0.0 (0.0-0.3) % Absolute Neutrophils Pending 2.28 (1.2-6.7) 10^3/uL Absolute Lymphocytes Pending 0.65 L (1.2-3.4) 10^3/uL Absolute Monocytes Pending 0.66 (0.1-0.8) 10^3/uL Absolute Eosinophils Pending 0.00 (0.0-0.7) 10^3/uL Absolute Basophils Pending 0.01 (0.0-0.2) 10^3/uL VBG Lactate 1.9 (<or=2.0) mmol/L Sodium Pending 137 (136-145) mmol/L Potassium Pending 4.1 (3.5-5.1) mmol/L Chloride Pending 97 L (98-107) mmol/L Carbon Dioxide Pending 27.8 (21.0-32.0) mmol/L Anion Gap Pending 12.2 H (3-11) mmol/L BUN Pending 54 H (7-18) mg/dL Creatinine Pending 3.1 H (0.70-1.30) mg/dL Est GFR (CKD-EPI 2020) Pending 19.45 (mL/min/1.73m2) Glucose Pending 325 H (74-106) mg/dL Calcium Pending 9.8 (8.5-10.1) mg/dL Total Bilirubin Pending 1.0 (0.2-1.0) mg/dL AST Pending 14 L (15-37) U/L ALT Pending 20 (16-63) U/L Alkaline Phosphatase Pending 62 (46-116) U/L Creatine Kinase Cancelled Pending Total Protein Pending 7.7 (6.4-8.2) g/dL Albumin Pending 3.9 (3.4-5.0) g/dL Lipase 67 (<78) U/L Procalcitonin 0.38 ng/mL Fklrk-cu-Sost Documentation Fingerstick Glucose Start: 10/30/24 00:35 Freq: .Q6H Status: Active Protocol: Activity Type Activity Date Activity User E-sign Co-sign Detail Recorded Client Recorded Date Recorded By Document 10/30/24 07:00 BKG DAEMON(3) [id number] 10/30/24 07:00 BKG DAEMON(4) Intake and Output - 24 Hour Total 10/29/24 22:34 thru 10/30/24 06:45 Intake Total 1020 Output Total 2200 Balance -1180 Weight 68.4 kg Intake: IV 1020 Output: Gastric Drainage 2200 Left Nare 2200 Other: Urine Color Straw Comment lerner is patent Urinary Catheter Urinary Catheter Date of 10/30/24 Insertion [Urethral (Lerner)] Time of insertion [Urethral ( 02:30 Lerner)] Falls Risk Assessment History of Falls No History 10/30/24 03:24 Contributing Factors Confusion 10/30/24 03:24 Ambulatory Aids Uses ambulatory device 10/30/24 03:24 Tubes/Lines With any additional score 10/30/24 03:24 Gait Evaluation W/any additional score 10/30/24 03:24 Fall Total Score 58 10/30/24 03:24 Level of Risk High Risk 10/30/24 03:24 Restraint Information Behavior Requiring Restraints/ Harm to Patient Seclusion Note Pt not oriented. Will pull at NG tube and lines. Restraints continued. Problems (Last Reviewed 06/22/20 @ 10:16 by Shaji Nina MD) PATRICIA (acute kidney injury) (Acute) Hypothyroidism (Chronic) Benign essential hypertension (Acute) Diabetes mellitus with hyperglycemia, with long-term current use of insulin (Acute) Chronic dementia with behavioral disturbance (Acute) Small bowel obstruction (Acute) Notes 10/30/24 01:22 Nursing Notes by Rosemary Mckeon Pt removed NG tube and IV. Did not replace down in ED. NG and IV agreed upon to be replaced in ICU where 1:1 care can be provided for pt safety. Initialized on 10/30/24 01:22 - END OF NOTE v v v v v v v v v Sending and/or Receiving Nurses: Please use comment section below to note any information pertinent to the patient hand-off not included above. Information / Comments: Report received from: Jimmy Mendoza RN all questions answered: yes
[2024-10-30] MEDS: Norepinephrine in D5W 8 MG/250 ML BAG 9.375 MG IV (08:18)
[2024-10-30] MEDS: Insulin Aspart 300 UNITS/3 ML PEN SC (08:31)
[2024-10-30] MEDS: Lactated Ringers 250 ML 1000 ML IV (09:00)
--- NOTE | 2024-10-30 09:02 | INITIAL_ITS ---
Date of service: 10/30/24 Time of Service: 09:02 Care Management Initial Assmt Initial Assessment Reason for Hospitalization: Small bowel obstruction Functional Status/Living Situation Patient Presentation: Sherman presented to the ED last night with c/o abdominal achiness and distention. , Fide, reported 2-3 days of intermittent abdominal pain and decreased appetite. Uncertain of last BM. He was found to have a small bowel obstruction. Sherman was made NPO, NGT was placed to suction and profuse dark liquid was removed. Vladimir was lying in the ICU bed when CM arrived. He had an NGT that was actively draining fecal matter, he was on IVF and a norepipnepherine drip, and was noted to be tacchycardic and hypotensive. Sherman responded to voice and touch with non-sensical responses. Fide was present. She stated that she is worried that Sherman may not pull out of this one. Fide stated that they are very well supported at home by their neighbors. She feels that prior to this admission, things were going well at home. Sherman has Alzheimer's. Fide has people who will stay with Vladimir so she can go out to run errands, or have lunch with a friend. She did not feel the need to increase any services. Sherman is ambulatory at baseline, and has been able to perform most of his ADLs. Fide is also working with a paid [employer] Systemsman who is currently searching for gun mechanic care for Sherman is he should need hospice care at home. Fide is aware that depending on the outcome of this hospitalization, Sherman may need more services at home. She did not want to commit at this time, which is reasonable. did ask Fide about a palliative consult. Her nephew is a palliative doctor in [place], and she has been consulting with him. She did not want and [facility] consult at this time. Town of Residence: [place] Resides with: Spouse (Fide) Significant Other/Family: Out of area (no real family locally. Fide has a son from her first marriage who is very helpful, but does not live close.) Caregiver/Guardian: Fide is still driving, seems quite capable. Natural Supports: Fide Employment Status: Retired Instrumental Activities of Daily Living (ADLs): Requires support Activities/Hobbies/SocialSupport: Fide takes Sherman out on an outing nearly every day. They listen to TV and b ooks on tape. Sherman loves visits from friends. Medications Medication Management: Issues/Barriers with Instructions/Directions (some quest ion if following med regime correctly? Will suggest new RN for med teaching.) Physical Functioning/Mobility Assistive Device: none Advance Directives Advance Directives: Do you have an Advance Directive: Y , 14:17 AD On File at [facility]: Y 01/11/19, 14:17 Date Asked 01/11/19 01/11/19, 14:17 AD Date Reviewed 10/29/24 10/29/24, 22:43 COLST On File at [facility] No 10/29/24, 22:43 COLST Date Scanned Code Status Resuscitation Status DNR/DNI Portal Pt does not currently have a portal and education provided: Yes Insurance Coverage/Financial Issues Insurance: A[id number] Mcr Replacement - Care Team Visit Care Team Role Provider Type Angeles Chopra Primary Care Provider NON-[facility] STAFF PHYSICIAN Bal Rousseau DO Emergency Provider [facility] STAFF PHYSICIAN Sarwat Kitchen MD Admit Provider [facility] STAFF PHYSICIAN Attending Provider Discharge Potential Discharge Needs: PCP F/U Appt Anticipated Barriers to Discharge: None Identified Patient/Family Education Needs: Review discharge instructions, discuss Ask Me Three Transportation: Private vehicle Plan: Sherman's discharge plan is uncertain at this time. Plan will depend on how well Sherman recovers. CM will continue to follow closely. Social Determinants of Health Screening Will the Patient Participate in the Screening?: Unable to obtain Do you worry about having a steady place to live?: choose not to answer Comments: unable to obtain information. pt speaks in a word salad PFSH All Active Problems (Updated 10/30/24 @ 12:07 by Carlos Guillen MD) Hypotension (Acute) SIRS (systemic inflammatory response syndrome) (Acute) PATRICIA (acute kidney injury) (Acute) Hypothyroidism (Chronic) Benign essential hypertension (Acute) Diabetes mellitus with hyperglycemia, with long-term current use of insulin (Acute) Chronic dementia with behavioral disturbance (Acute) Small bowel obstruction (Acute) Neuropathy (Acute) Nail dystrophy (Acute) Chest tightness (Acute) HTN (hypertension) (Chronic) Aortic stenosis (Chronic) Medical History (Updated 10/30/24 @ 12:07 by Carlos Guillen MD) Stenosis of left internal carotid artery Retinal detachment Glaucoma HLD (hyperlipidemia) Diabetes mellitus Social History Smoking/Tobacco Use Status: Never Smoking risk assessment performed?: Yes Alcohol Intake: current Alcohol Intake frequency: 0-2 drinks per day Alcohol type: wine Details: pt drinks approx 1-3 glasses of wine a day. Drug use: Never What type of physical activity do you participate in: walking Duration: 45-60 minutes/day Frequency: daily Do you feel safe in your relationship?: Yes Anticipated HH Services Anticipated HH Services at [facility] Needed, [facility], PT and RN Following Provider: Angeles Chopra.
[2024-10-30] MEDS: CEFEPIME 1 GM in Normal Saline 50 ML IVPB (09:52)
[2024-10-30 10:07] LABS: ESR 23 mm/hr (0-20)
[2024-10-30 10:24] LABS: C-Reactive Protein 6.55 mg/dL (<or=0.5); NT-proBNP 2305 pg/mL (<300)
[2024-10-30] MEDS: Normal Saline-STERILE FIELD 0.9% 10 ML SYR (11:30)
[2024-10-30] MEDS: Lactated Ringers 1,000 ML 2000 ML IV (11:30)
--- NOTE | 2024-10-30 11:51 | PGE_ITS ---
Date of Service Date of service: 10/30/24 Time of Service: 11:52 Assessment and Plan Assessment and plan (1) Small bowel obstruction: Status: Acute Assessment and plan: NGT placed and confirmed on CXR after mild sedation with olanzapine and benzo Profuse dark liquid removed Contributing factors likely include poor DM control, dehydration Appreciate general surgery guidance Continue NPO 10/30/24 Per NS, ng was advanced 5cm but I do not see a repeat films. Pt is for ct abd/pelvis s contrast so hopefully this will give us approrpriate info. Pt with significant decompression of appx 4L IMPRESSION: A gastric feeding tube is present within the proximal stomach . The side port appears to be at the GE junction, recommend advancement approximately 5 cm. Dictated and Authenticated by: Yris Valladares MD. Orderin Imtiaz Fam MD (2) PATRICIA (acute kidney injury): Status: Acute Assessment and plan: Likely PATRICIA vs chronic with creatinine 3.1, BUN elevated 54 Likely dehydration, note recent temps above 90 He was given LR 1L bolus in ED and is now on LR @ 125 CK within normal limits in ED, will repeat in the morning He struggled with agitation prior to medications, anticipate CK elevation but not rhabdo Monitor renal function in morning labs 10/30/24 D/W GS and agreee with aggressive IVF. PT's vitals/pe would indicate severe dehydration echo 2013 showed ef at 65% with mild/mod . Pt should be able to handle fairly brisk volume (3) Chronic dementia with behavioral disturbance: Status: Acute Assessment and plan: Per report, patient's provides adequate care Concern for uncontrolled diabetes, possible held insulin due to poor PO intake Agitation secondary to illness, pain, medical interventions, likely out of character Olanzapine 10 given for agitation, followed by lorazepam 4mg. Soft restraints placed Care level ICU Will appreciate care management assessment of home safety (4) Diabetes mellitus with hyperglycemia, with long-term current use of insulin: Status: Acute Assessment and plan: Last known A1C 8.0 in 2021, repeating with morning labs Home regimen includes basal 15u daily, pioglitazone Hold pioglitazone Giving 10u long acting insulin now, likely TDD 15u. Medium correctional, no scheduled basal pending med rec (5) Benign essential hypertension: Status: Acute Assessment and plan: Holding home medications for NPO Home regimen includes amlodipine, carvedilol, losartan, need confirmation (6) Hypothyroidism: Status: Chronic Assessment and plan: Holding home levothyroxine (7) SIRS (systemic inflammatory response syndrome): Status: Acute Assessment and plan: Pt does reach SIRS criteria with elevated HR and RR and TEMP. Unfortunately, elevated hr and low bp are associated with dehydration. Will c/w aggressive ivf but will also check urine cx/hrsa/blood cx/legionella/strep. Started cefepime empirically (8) Hypotension: Status: Acute Assessment and plan: cw ivf fluid and wean levophed as soon as possible Subjective Subjective Interval history since last seen: Pt seen and examined in his room this am. POC d/w (bedside). NS during ICU AMARA vang (Baljit). NS do report worsening hypotension Exam Narrative Exam Narrative: heent-ncat, ng in place, mmdry neck-no lad no jvd cv-tachycarda pulm-ctab no amu abd-disteneded bs decreased x 4 ext-no ccebilat gu-lerner in place Objective Last Vital Signs Temp 38.1 C H 10/30/24 08:00 Pulse 121 H 10/30/24 09:10 Resp 28 H 10/30/24 09:10 BP 88/48 L 10/30/24 09:10 Pulse Ox 97 10/30/24 09:10 Laboratory Results - last 24 hr 10/29/24 10/30/24 10/30/24 23:15 05:30 05:35 WBC 3.62 L 4.22 L RBC 3.95 L 4.42 Hgb 11.3 L 12.7 L Hct 34.0 L 37.6 L MCV 86 85 MCH 28.6 28.7 MCHC 33.2 33.8 RDW 14.6 H 14.2 H Plt Count 175 206 MPV 10.9 11.6 H Immature Gran % 0.6 See Differential Neutrophils % 62.9 51.0 Band Neutrophils % 19 Lymphocytes % 18.0 16.0 Monocytes % 18.2 14.0 Eosinophils % 0.0 0.0 Basophils % 0.3 0.0 Nucleated RBC % 0.0 0.0 Absolute Neutrophils 2.28 2.95 Absolute Lymphocytes 0.65 L 0.68 L Absolute Monocytes 0.66 0.59 Absolute Eosinophils 0.00 0.00 Absolute Basophils 0.01 0.00 RBC Morphology Normal ESR 23 H VBG Lactate 1.9 Sodium 137 138 Potassium 4.1 3.9 Chloride 97 L 94 L Carbon Dioxide 27.8 32.6 H Anion Gap 12.2 H 11.4 H BUN 54 H 62 H Creatinine 3.1 H 4.0 H* Est GFR (CKD-EPI 2020) 19.45 14.33 Glucose 325 H 347 H Calcium 9.8 9.5 Total Bilirubin 1.0 0.9 AST 14 L 16 ALT 20 20 Alkaline Phosphatase 62 58 Creatine Kinase 202 Cancelled C-Reactive Protein 6.55 H NT-Pro-B Natriuret Pep 2305 H Total Protein 7.7 7.4 Albumin 3.9 3.7 Lipase 67 Procalcitonin 0.38 Time Spent with Patient Time Spent with Patient: 35-49 minutes Time was spent: preparing to see the patient(eg.review tests), obtaining and/or reviewing separately otained hiistory, ordering medications,tests, procedures, referring, communicating with other health career development facilitator, indepentently interpreting results, counseling the patient and care coordination
[2024-10-30] MEDS: Lactated Ringers 1,000 ML 1000 ML IV ×2 (12:05→14:08)
--- NOTE | 2024-10-30 12:22 | W.SURGCON ---
Date of service: 10/30/24 Time of Service: 11:15 Assessment and Plan Assessment and plan (1) Small bowel obstruction: Status: Acute Assessment and plan: 83-year-old man who is severely dehydrated with hypovolemic shock following 4 L out from his NG tube. He needs aggressive fluid resuscitation which were initiated at the bedside. All NG tube losses should be replaced with LR at a 1:1 ratio. At the bedside to replace his NG tube for a large?bore 18 [place] Citizen to decompress him better and another 1 L was removed within a few minutes. He is under resuscitated and not a candidate for exploratory surgery right now. It does not sound like his family/ would want exploratory surgery anyway. I have reviewed his CT scan in careful detail. Clinically and by history he has been obstructed for 3 or 4 days already and so I am not really worried about the acuity of needing surgical exploration. His bowel would have become ischemic and/or perforated long ago if that was going to happen. At this point he simply needs to be resuscitated and decompressed and then we can decide on possible surgical intervention in the next couple of days after we resuscitate him. He does not need a central line. He has excellent peripheral IV access. He has 4 peripheral IVs now, 1 is large. The pressors can go through that 1 but I am optimistic we will get off the pressors in the next short while now that we are getting volume back on board. Overall plan: Replace NGT losses 1:1 with LR Wean off pressors Bolus LR for low blood pressure in addition to replacing 1:1. Needs maintenance LR at 150 in addition to replacing losses NGT to low CONTINUOUS decompression DVT prophylaxis This was all discussed with the hospitalist in person. 75 minutes were spent by me, at the bedside performing critical care on this patient. History of Present Illness Narrative: Patient is an 83-year-old man with advanced dementia who is taking care of at home by his . He is DNR/DNI. She says he started getting sick about 5 days ago with some vomiting and becoming more lethargic and quiet. He has not been eating or drinking for a few days in addition to having the vomiting. She brought him into the hospital last night and he was found to have a small bowel obstruction. An NG tube was placed to decompress him and 4 L were removed. He was admitted to the hospital but 3 or 4 hours ago started becoming hypotensive and more lethargic. He was found to have very low blood pressure and significant tachycardia and was moved to the ICU. At the time of consultation he is on significant amounts of Levophed and having very little urine output in the Hernandez catheter. The history is obtained from the patient's who is at the bedside. She does not want extreme measures done and at this time is not interested in any surgical interventions. However, she does hope that we can get him back to his baseline if at all possible with noninvasive efforts. She reports that he has never had surgery before. PFSH All Active Problems (Updated 10/30/24 @ 12:07 by Carlos Guillen MD) Hypotension (Acute) SIRS (systemic inflammatory response syndrome) (Acute) PATRICIA (acute kidney injury) (Acute) Hypothyroidism (Chronic) Benign essential hypertension (Acute) Diabetes mellitus with hyperglycemia, with long-term current use of insulin (Acute) Chronic dementia with behavioral disturbance (Acute) Small bowel obstruction (Acute) Neuropathy (Acute) Nail dystrophy (Acute) Chest tightness (Acute) HTN (hypertension) (Chronic) Aortic stenosis (Chronic) Medical History (Updated 10/30/24 @ 12:07 by Carlos Gulilen MD) Stenosis of left internal carotid artery Retinal detachment Glaucoma HLD (hyperlipidemia) Diabetes mellitus Social History Smoking/Tobacco Use Status: Never Smoking risk assessment performed?: Yes Alcohol Intake: current Alcohol Intake frequency: 0-2 drinks per day Alcohol type: wine Details: pt drinks approx 1-3 glasses of wine a day. Drug use: Never What type of physical activity do you participate in: walking Duration: 45-60 minutes/day Frequency: daily Do you feel safe in your relationship?: Yes Exam Narrative Exam Narrative: Gen: Lethargic and not really interactive but does not appear uncomfortable. Requiring restraints because of attempting to remove NG tube. 14 [place] Citizen NG tube in the nare at the bedside. Neuro: Not alert Psych: Unable to assess Chest: Non-labored breathing, no wheezing, no visible shortness of breath. Heart: Severe tachycardia but regular rhythm (rate 150s) Abdomen: Soft but severely distended, does not seem tender to examination Results Last Vital Signs Temp 100.6 F H 10/30/24 08:00 Pulse 140 H 10/30/24 12:01 Resp 47 H 08/16/25 12:01 BP 94/49 L 10/30/24 12:01 Pulse Ox 96 10/30/24 12:01 Labs 10/30/24 05:30 10/30/24 05:30 Labs: Laboratory Results - last 24 hr 10/29/24 10/30/24 10/30/24 23:15 05:30 05:35 WBC 3.62 L 4.22 L RBC 3.95 L 4.42 Hgb 11.3 L 12.7 L Hct 34.0 L 37.6 L MCV 86 85 MCH 28.6 28.7 MCHC 33.2 33.8 RDW 14.6 H 14.2 H Plt Count 175 206 MPV 10.9 11.6 H Immature Gran % 0.6 See Differential Neutrophils % 62.9 51.0 Band Neutrophils % 19 Lymphocytes % 18.0 16.0 Monocytes % 18.2 14.0 Eosinophils % 0.0 0.0 Basophils % 0.3 0.0 Nucleated RBC % 0.0 0.0 Absolute Neutrophils 2.28 2.95 Absolute Lymphocytes 0.65 L 0.68 L Absolute Monocytes 0.66 0.59 Absolute Eosinophils 0.00 0.00 Absolute Basophils 0.01 0.00 RBC Morphology Normal ESR 23 H VBG Lactate 1.9 Sodium 137 138 Potassium 4.1 3.9 Chloride 97 L 94 L Carbon Dioxide 27.8 32.6 H Anion Gap 12.2 H 11.4 H BUN 54 H 62 H Creatinine 3.1 H 4.0 H* Est GFR (CKD-EPI 2020) 19.45 14.33 Glucose 325 H 347 H Calcium 9.8 9.5 Total Bilirubin 1.0 0.9 AST 14 L 16 ALT 20 20 Alkaline Phosphatase 62 58 Creatine Kinase 202 Cancelled C-Reactive Protein 6.55 H NT-Pro-B Natriuret Pep 2305 H Total Protein 7.7 7.4 Albumin 3.9 3.7 Lipase 67 Procalcitonin 0.38
[2024-10-30] MEDS: Heparin 5,000 UNITS/ML VIAL 5000 UNITS SC (13:11)
[2024-10-30] MEDS: Lactated Ringers 1,000 ML 150 ML IV (13:12)
[2024-10-30] MEDS: MORPHine 4 MG/ML SYR IV/SC (15:41)
--- NOTE | 2024-10-30 16:26 | PDOC.CMPRO ---
Date of service: 10/30/24 Time of Service: 16:26 Care Management Progress Note Progress Note Text Progress Note Text: Sherman peacefully this afternoon at 15:40 with his by his side. Social Determinants of Health Screening Will the Patient Participate in the Screening?: Unable to obtain Do you worry about having a steady place to live?: choose not to answer Comments: unable to obtain information. pt speaks in a word salad
== END 2024-10-30 18:04 | disposition expired | DRG 389 ==
LOC: ER 10-30 00:39 → ICU 10-30 01:07
PROVIDERS: Admitting Provider Family Medicine; Emergency Provider Student in an Organized Health Care Education/Training Program; PCP Internal Medicine Geriatric Medicine; Responsible Provider Hospitalist; Visit Provider Family Medicine
DX: K56.609 Unspecified intestinal obstruction, unspecified as to partial versus complete obstruction (principal); F03.918 Unspecified dementia, unspecified severity, with other behavioral disturbance; N17.9 Acute kidney failure, unspecified; R65.10 Systemic inflammatory response syndrome (SIRS) of non-infectious origin without acute organ dysfunction; E86.0 Dehydration; R57.1 Hypovolemic shock; E11.65 Type 2 diabetes mellitus with hyperglycemia; Z79.4 Long term (current) use of insulin; I10 Essential (primary) hypertension; E03.9 Hypothyroidism, unspecified; Z51.5 Encounter for palliative care; L60.3 Nail dystrophy; H40.9 Unspecified glaucoma; E78.5 Hyperlipidemia, unspecified; I65.22 Occlusion and stenosis of left carotid artery; I35.0 Nonrheumatic aortic (valve) stenosis; E11.40 Type 2 diabetes mellitus with diabetic neuropathy, unspecified; Z78.1 Physical restraint status
CPT/HCPCS: 00123; 36415; 71045; 80053; 82550; 83690; 84145; 85652; 87040; 87641; 96361; 96372; 96374; 99285; 99291; 74177; 83605; 83880; 85025; 86140; 93005; 93010; 94760; 99223; 99232; J0131; J0692; J1644; J1815; J2060; J2270; J2359; J2405; J3490